=== PATIENT | female | born 1950 | race Caucasian/White ===

== ENCOUNTER → 2017-02-25 | Outpatient (CLI) | payer MEDICARE, OTHER ==
--- NOTE | 2017-02-25 13:44 | RAD ---
EXAM DESCRIPTION: Hip Bilateral (accession [id number]), Pelvis (accession [id number]) CLINICAL HISTORY: 66 years, Female, PAIN IN RIGHT AND LEFT HIPS COMPARISON: None TECHNIQUE: Two views of each hip and AP view of the pelvis FINDINGS: Two views of each hip demonstrate hypertrophic degenerative lipping at each acetabular margin laterally as well as hypertrophic bony changes overlying each greater trochanter. Each joint space is maintained with modest degenerative changes. No fracture or dislocation is noted. No destructive process is seen and no evidence of avascular necrosis evident. Heterotopic hypertrophic bone changes over each greater trochanter raises the possibility of trochanteric bursitis. The bony pelvic ring is intact as well as the SI joints with the pelvic phleboliths noted as well as a bowel anastomosis in the central slightly left pelvis. No destructive change or fracture is noted. IMPRESSION: 1. Acetabular degenerative changes involving each acetabular rim and heterotopic bone overlying each greater trochanter suggesting an element of trochanteric bursitis. 2. Intact pelvis without fracture or destructive change. Electronically signed by: Rudy Acosta MD 02/25/2017 1:43 PM CDT
--- NOTE | 2017-02-25 13:44 | RAD ---
EXAM DESCRIPTION: Hip Bilateral (accession [id number]), Pelvis (accession [id number]) CLINICAL HISTORY: 66 years, Female, PAIN IN RIGHT AND LEFT HIPS COMPARISON: None TECHNIQUE: Two views of each hip and AP view of the pelvis FINDINGS: Two views of each hip demonstrate hypertrophic degenerative lipping at each acetabular margin laterally as well as hypertrophic bony changes overlying each greater trochanter. Each joint space is maintained with modest degenerative changes. No fracture or dislocation is noted. No destructive process is seen and no evidence of avascular necrosis evident. Heterotopic hypertrophic bone changes over each greater trochanter raises the possibility of trochanteric bursitis. The bony pelvic ring is intact as well as the SI joints with the pelvic phleboliths noted as well as a bowel anastomosis in the central slightly left pelvis. No destructive change or fracture is noted. IMPRESSION: 1. Acetabular degenerative changes involving each acetabular rim and heterotopic bone overlying each greater trochanter suggesting an element of trochanteric bursitis. 2. Intact pelvis without fracture or destructive change. Electronically signed by: Rudy Acosta MD 02/25/2017 1:43 PM CDT
== END | disposition home or self-care (01) ==
LOC: RAD 12:00
PROVIDERS: ATTEND Orthopaedic Surgery
DX: M25.551 Pain in right hip (principal); M25.552 Pain in left hip

== ENCOUNTER 2017-03-01 05:59 | Day surgery (SDC) | payer MEDICARE, OTHER ==
[2017-03-01] MEDS ORDERED: LACTATED RINGERS 1,000 ML ONE (06:51)
[2017-03-01] MEDS ORDERED: fentaNYL CITRATE INJ 50 MCG/ML AMP ONE (07:47)
[2017-03-01] MEDS ORDERED: MIDAZOLAM INJ 5 MG/5 ML VIAL ONE (07:47)
[2017-03-01] MEDS: methylPREDNISolone ACETATE 80 MG/ML VIAL ONE ×2 (08:07→08:09)
[2017-03-01] MEDS: LIDOCAINE 1% W/ EPINEPHRINE 20 ML VIAL INJ ONE ×2 (08:07→08:09)
[2017-03-01] MEDS: BUPIVACAINE 0.25% INJ 30 ML VIAL INJ ONE ×2 (08:07→08:09)
--- NOTE | 2017-03-01 09:04 | OP ---
DATE OF PROCEDURE: 03/01/17 PREOPERATIVE DIAGNOSIS: 1. Bilateral hip osteoarthritis. POSTOPERATIVE DIAGNOSIS: 1. Bilateral hip osteoarthritis. PROCEDURE: 1. Bilateral hip injections. SURGEON: Winston Freed MD. SILVER LAP MACHINE TENDER: Reji Sharma CST, SA-C. ANESTHESIA: Conscious sedation. COMPLICATIONS: None. FINDINGS: Bilateral hip arthritis. INDICATION: The patient has a history of pain in the groin. She has also had some pain laterally and at this point the pain seems to be most prominent in the groin. Because of her ongoing pain, she has requested operative intervention. After discussing the risks, benefits and alternatives to that, the patient has given informed consent for bilateral hip injection. PROCEDURE: The patient was brought to the Operating Room and placed in supine position. Conscious sedation was administered. The groin was sterilely prepped with Betadine. Under fluoroscopic imaging, the an 18-gauge spinal needle was passed through a medial portal into the hip joint. Following confirmation of placement, a combination of lidocaine and Depo-Medrol was injected. The needle was withdrawn. Pressure was held on the injection site. The wound was then covered with a sterile bandage. Attention was focused on the left side and the procedure was repeated in its entirety after sterilely prepping the groin. The needle was advanced under fluoroscopic imaging and after confirmation of placement, a combination of lidocaine and Depo-Medrol was injected. After removal of the needle, sterile dressing was placed. The patient was then taken back to the Day Surgery Unit. POSTOPERATIVE INSTRUCTIONS: The patient will be weight-bearing as tolerated. The patient will followup with us in approximately two weeks. #[id number] [facility]
[2017-03-01] MEDS ORDERED: LIDOCAINE 1% 10 ML VIAL INJ ONE (12:00)
[2017-03-01] MEDS ORDERED: PROPOFOL 200 MG/20 ML VIAL IV ONE (12:00)
[2017-03-01 12:07] VITALS: O2SAT 96
[2017-03-01 12:10] VITALS: BP 116/66; TEMP 97.7
== END 2017-03-01 09:15 | disposition home or self-care (01) ==
LOC: AMB 05:59
PROVIDERS: ATTEND Orthopaedic Surgery
DX: M16.0 Bilateral primary osteoarthritis of hip (principal); I10 Essential (primary) hypertension; K21.9 Gastro-esophageal reflux disease without esophagitis; I25.10 Atherosclerotic heart disease of native coronary artery without angina pectoris; I25.2 Old myocardial infarction; E11.9 Type 2 diabetes mellitus without complications; E66.9 Obesity, unspecified; J44.9 Chronic obstructive pulmonary disease, unspecified; Z79.82 Long term (current) use of aspirin; Z79.899 Other long term (current) drug therapy
CPT/HCPCS: 01200; 20610; 36416; 82948; 87070; J1030; J2250; J3010; J3490; J7120

== ENCOUNTER → 2018-11-07 | Outpatient (CLI) | payer MEDICARE, OTHER ==
--- NOTE | 2018-11-07 15:46 | RAD ---
EXAM DESCRIPTION: Pelvis CLINICAL HISTORY: M25.562, M25.552 COMPARISON: 25 February 2017 TECHNIQUE: AP pelvis FINDINGS: Degenerative changes are observed in the lower lumbar spine. Mild acetabular osteophyte formation is observed in both hips. Degenerative changes are seen in the pubic symphysis. Chain sutures observed in the pelvis. Phleboliths are observed in the pelvis. No fracturing is detected. No interval changes noted. IMPRESSION: Degenerative changes are observed. No fracturing is detected. Electronically signed by: Jono Rausch MD 11/07/2018 3:42 PM CDT
--- NOTE | 2018-11-07 15:47 | RAD ---
EXAM DESCRIPTION: Knee,Left Complete CLINICAL HISTORY: M25.562, M25.552 COMPARISON: None. TECHNIQUE: 4 views left. FINDINGS: Degenerative changes are observed in the patellofemoral joint. Mild medial tibial osteophyte formation is observed. There is mild loss of medial joint space. No fracturing is detected. IMPRESSION: Degenerative changes are observed in the medial joint compartment and patellofemoral articulation. No fracture is detected. Electronically signed by: Jono Rausch MD 11/07/2018 3:44 PM CDT
== END ==
LOC: RAD 09:16
PROVIDERS: ATTEND Orthopaedic Surgery
DX: M17.12 Unilateral primary osteoarthritis, left knee (principal); M47.896 Other spondylosis, lumbar region; M89.8X8 Other specified disorders of bone, other site

== ENCOUNTER → 2019-05-04 | Outpatient (CLI) | payer MEDICARE, OTHER ==
--- NOTE | 2019-05-04 12:36 | RAD ---
2 radiographs right hip. Single radiograph pelvis. Indication: PAIN Comparison: February 25, 2017 Impression: No acute fracture of the pelvis or right hip identified. Evaluation for fracture is limited given the degree of osteopenia. If high clinical concern for acute fracture, correlation with MRI recommended given its greater sensitivity in the osteopenic patient. If the patient cannot tolerate MRI imaging or more urgent imaging is required, CT could be performed, however it is less sensitive in the osteopenic patient when compared to MRI. Mild bilateral hip osteoarthritis. Prominent enthesophyte formation bilateral greater trochanters. Mild pubic symphysis osteoarthritis. Lower lumbar disc disease. Electronically signed by: Derek Hernandez MD 05/04/2019 12:30 PM CDT
== END ==
LOC: RAD 09:49
PROVIDERS: ATTEND Orthopaedic Surgery
DX: M16.0 Bilateral primary osteoarthritis of hip (principal); M51.36 Other intervertebral disc degeneration, lumbar region; M76.9 Unspecified enthesopathy, lower limb, excluding foot

== ENCOUNTER → 2019-05-05 | Outpatient (CLI) | payer MEDICARE, OTHER ==
--- NOTE | 2019-05-05 10:18 | MRI ---
Study: MRI of the Right Hip. Indication: STRAIN OF MUSCLE AND OR TENDON OF THIGH Technique: Multiplanar, multi sequence MRI of the right hip was obtained without intravenous contrast. Comparison: None. Findings: No acute fracture or osteonecrosis of the right hip joint. Tiny joint effusion. Mild grade 4 chondrosis and subchondral cystic change/marrow edema throughout the anterior superior and superior aspects of the acetabular rim. Additional areas of grade 3 chondral loss of the joint. Mild grade 4 chondrosis and subchondral cystic change posterior margin of the femoral head. Tiny joint line osteophytes. Pronounced lower lumbar disc disease. Moderate pubic symphysis osteoarthritis. At least mild left hip osteoarthritis. Tendinosis bilateral hamstring tendon origins. Tendinosis bilateral gluteus minimus/medius tendon insertions with bilateral greater trochanter bursal edema/inflammation. Impression: Moderate to severe right hip osteoarthritis with a tiny joint effusion. No acute fracture or osteonecrosis. Additional findings as above. Electronically signed by: Derek Hernandez MD 05/05/2019 10:16 AM CDT
== END ==
LOC: MRI 08:00
PROVIDERS: ATTEND Orthopaedic Surgery
DX: S76.911D Strain of unspecified muscles, fascia and tendons at thigh level, right thigh, subsequent encounter (principal); M16.11 Unilateral primary osteoarthritis, right hip

== ENCOUNTER 2019-05-22 05:25 | Day surgery (SDC) | payer MEDICARE, OTHER ==
[2019-05-22] MEDS ORDERED: LACTATED RINGERS 1,000 ML ONE (06:01)
[2019-05-22] MEDS ORDERED: LIDOCAINE 1% 10 ML VIAL INJ ONE (07:00)
[2019-05-22] MEDS ORDERED: PROPOFOL 200 MG/20 ML VIAL IV ONE (07:00)
[2019-05-22] MEDS ORDERED: LIDOCAINE 1% W/ EPINEPHRINE 20 ML VIAL INJ ONE (08:36)
[2019-05-22] MEDS ORDERED: methylPREDNISolone ACETATE 80 MG/ML VIAL ONE (08:36)
[2019-05-22] MEDS ORDERED: BUPIVACAINE 0.25% INJ 30 ML VIAL INJ ONE (08:36)
[2019-05-22] MEDS ORDERED: KETAMINE HCL 100 MG/ML VIAL ONE (09:31)
[2019-05-22 09:41] VITALS: BP 120/59; TEMP 98.4; O2SAT 98
--- NOTE | 2019-05-22 13:14 | RAD ---
EXAM DESCRIPTION: Fluoroscopy Up to 1Hr CLINICAL HISTORY: 68 years Female, RIGHT HIP INJ COMPARISON: MR right hip 05/05/2019 IMPRESSION: Single intraoperative fluoroscopic image saved for the benefit of the surgeon. Right hip injection. Please see procedure report for full details. Fluoroscopy time: 7 seconds Fluoroscopic images: 1 Electronically signed by: Leandro August MD 05/22/2019 1:12 PM CDT
--- NOTE | 2019-06-03 13:07 | OP ---
DATE OF PROCEDURE: 05/22/19 PREOPERATIVE DIAGNOSIS: 1. Osteoarthritis of the right hip. POSTOPERATIVE DIAGNOSIS: 1. Osteoarthritis of the right hip. PROCEDURE: 1. Right hip injection under anesthesia. SURGEON: Winston Freed MD. TOWERMAN: Reji Sharma CST, SA-C. ANESTHESIA: Conscious sedation. COMPLICATIONS: None. FINDINGS: Severe arthritis. INDICATION: Ms. Pineda has a history of arthritis. For the arthritis, she has been using conservative measures. She has requested intraarticular injection. After discussing the risks, benefits and alternatives to that, the patient has given informed consent for that. PROCEDURE: The patient was brought to the Operating Room and placed in supine position. Conscious sedation was administered and the leg was flexed, abducted and externally rotated. The groin was prepped and fluoroscopic imaging was used to confirm needle placement into the hip joint through a medial portal. Once placement had been confirmed, a combination of lidocaine and Depo-Medrol were injected into the joint. After injection, the needle was withdrawn. Pressure was held on the injection site. A sterile band-aid was placed. The patient was then taken back to the Day Surgery Unit. POSTOPERATIVE PLAN: The patient will be weight-bearing as tolerated. The patient will followup with us in 2 weeks. #[id number] [facility]
== END 2019-05-22 10:50 | disposition home or self-care (01) ==
LOC: AMB 05:25
PROVIDERS: ATTEND Orthopaedic Surgery
DX: M16.11 Unilateral primary osteoarthritis, right hip (principal); Z88.5 Allergy status to narcotic agent; Z90.49 Acquired absence of other specified parts of digestive tract
CPT/HCPCS: 01200; 20610; 36416; 76000; 80307; 82948; J1030; J3490; J7120

== ENCOUNTER → 2020-05-18 | Outpatient (CLI) | payer MEDICARE, OTHER | LOC: GMA MATASK 14:36 | PROVIDERS: ATTEND Family Medicine | DX: R30.0 Dysuria (principal); E11.9 Type 2 diabetes mellitus without complications ==